=== PATIENT | female | born 1945 | race Hispanic/Latino ===

== ENCOUNTER → 2018-08-07 | Outpatient (CLI) | payer OTHER ==
[~2018-08-07] MED LIST: ASPI-1181 PO; ATOR40TA69 PO; LANS1COM PO; LORA10TA7 PO; MECL12.585 PO; NITR0.4T SL; VALS160T29 PO
== END | disposition home or self-care (01) ==
LOC: RAH 07:54
PROVIDERS: ATTEND Internal Medicine
DX: K76.0 Fatty (change of) liver, not elsewhere classified (principal); K29.70 Gastritis, unspecified, without bleeding; I10 Essential (primary) hypertension; E78.5 Hyperlipidemia, unspecified
CPT/HCPCS: 76705

== ENCOUNTER → 2022-10-20 | Outpatient (CLI) | payer MEDICARE ==
[~2022-10-20] MED LIST changes: -ASPI-1181 PO; +ASPI-1443 PO; +MECL-226 PO; -MECL12.585 PO
== END | disposition home or self-care (01) ==
LOC: SHCH 09:52
PROVIDERS: ATTEND Internal Medicine Cardiovascular Disease
DX: I08.2 Rheumatic disorders of both aortic and tricuspid valves (principal)
CPT/HCPCS: 93306

== ENCOUNTER → 2022-10-23 | Outpatient (CLI) | payer MEDICARE ==
[2022-10-23 11:51] LABS: CREATININE 0.9 mg/dL (0.5-1.5); POTASSIUM 4.3 mmol/L (3.5-5.1)
== END | disposition home or self-care (01) ==
LOC: LAB 10:00
PROVIDERS: ATTEND Internal Medicine Cardiovascular Disease
DX: I35.0 Nonrheumatic aortic (valve) stenosis (principal); R00.1 Bradycardia, unspecified; R06.00 Dyspnea, unspecified
CPT/HCPCS: 36415; 80048; 83880; 85378

== ENCOUNTER → 2023-02-28 | Outpatient (CLI) | payer OTHER, MEDICARE | END | disposition home or self-care (01) | LOC: RAH 08:03 | PROVIDERS: ATTEND Internal Medicine | DX: K76.0 Fatty (change of) liver, not elsewhere classified (principal); K82.4 Cholesterolosis of gallbladder | CPT/HCPCS: 76705 ==